=== PATIENT | female | born 1940 | race Caucasian/White ===

== ENCOUNTER 2024-04-05 15:51 | Emergency (ER) | payer MEDICARE, SELFPAY ==
--- NOTE | ~2024-04-05 | XR_ITS ---
EXAMINATION: XR ribs LT 2V w CXR 2V DATE: 04/05/2024 16:35 INDICATION: Left chest injury and pain. TECHNIQUE: Frontal and lateral views of the chest and 2 views on 3 radiographs of the left ribs were obtained. COMPARISON: None. FINDINGS: CHEST TWO VIEWS: There is no pneumonia, pleural effusion, or pneumothorax. The heart size is normal. Surgical clips in the right upper quadrant are likely from cholecystectomy. LEFT RIBS: There is a fracture of left sixth rib. IMPRESSION: 1. Fracture of left sixth rib. Reviewed, dictated and finalized at location E.
[2024-04-05 15:51] VITALS: BP 141/64; PULSE 100; RESP 18; TEMP 36.6; O2SAT 99
--- NOTE | 2024-04-05 16:09 | ED.FALL ---
HPI - Fall General Chief Complaint: Fall Stated Complaint: bruise to lower extremity after fall History of Present Illness HPI Narrative: 83 years old white female tripped over a hose and fell landed on the left knee and left chest, few hours later started having pain at the left chest. Left knee pain is improving, lately noticed bruises of the left lower leg anteriorly. She denies any pain or swelling at the calf muscles or any trouble breathing or any swelling Review of Systems Review of Systems: All systems reviewed & are unremarkable except as noted in HPI and below Exam Narrative: General appearance: Well-developed, well-nourished Skin: Normal color Left lower leg showed diffuse bruises anteriorly with slight tenderness, calf muscles are nontender, nonswollen, non bruised. left knee showed good range of motion, no swelling slightly bruised anteriorly Head: Normocephalic, nontraumatic Eyes: Clear conjunctiva ENT: Oropharynx normal, ears normal, nose normal Neck: Supple, nontender Chest and respiratory: Airway patent, no respiratory distress, no accessory muscle use Heart: Regular rate/rhythm Abdomen: Soft, nontender, no organomegaly, quiet bowel sounds Vascular: Normal peripheral pulses, normal capillary refill. Musculoskeletal: Normal range of motion, nontender back slight tenderness left lower ribs with anterior-posterior pressure, no tenderness side to side pressure. Neurologic: Alert and oriented ?3, [employer] is normal as tested, no gross motor deficit Course Vital Signs Vital signs: Vital Signs Temperature 36.6 C 04/05/24 15:51 Pulse Rate 100 04/05/24 15:51 Respiratory Rate 18 04/05/24 15:51 Blood Pressure 141/64 H 04/05/24 15:51 Pulse Oximetry 99 04/05/24 15:51 Oxygen Delivery Room Air 04/05/24 15:51 Temperature 36.6 C 04/05/24 15:51 Pulse Rate 86 04/05/24 16:53 Respiratory Rate 16 04/05/24 16:53 Blood Pressure 128/58 L 04/05/24 16:53 Pulse Oximetry 99 04/05/24 16:53 Oxygen Delivery Room Air 04/05/24 16:53 MDM - Fall Imaging Data Radiologist's impression: Impressions Ribs w/Chest X-Ray 04/05/24 16:44 IMPRESSION: 1. Fracture of left sixth rib. Critical Care Time Critical Care Time Critical Care Time: No Discharge Plan Discharge Clinical Impression: Closed rib fracture Patient Disposition: Home, Self-Care Condition: Stable Instructions: Rib Fracture (ED) Additional Instructions: Return if symptoms are worsening , call your family physician for appointment, take Tylenol as as needed for aches and pain, continue home medications. Follow-up/Referrals: Harms,Anthony Polo M.D. [Primary Care Provider] -
[2024-04-05 16:53] VITALS: BP 128/58; PULSE 86; RESP 16; O2SAT 99
== END 2024-04-05 17:13 | disposition home or self-care (01) ==
PROVIDERS: Emergency Provider Emergency Medicine; PCP Family Medicine
DX: S22.32XA Fracture of one rib, left side, initial encounter for closed fracture (principal); W01.0XXA Fall on same level from slipping, tripping and stumbling without subsequent striking against object, initial encounter
CPT/HCPCS: 71046; 71100; 99283